=== PATIENT | female | born 1990 | race Caucasian/White ===

== ENCOUNTER 2019-08-19 15:20 | Inpatient (IN) | payer OTHER ==
[~2019-08-19] VITALS: Ht 160 cm; Wt 87.1 kg
[2019-08-19] MEDS ORDERED: LACTATED RINGERS 1,000 ML IV SCH (15:26)
[2019-08-19] MEDS ORDERED: CARBOPROST 250 MCG/ML AMP IM PRN (15:30)
[2019-08-19] MEDS ORDERED: OXYTOCIN 10 UNITS/ML VIAL IM SCH (15:30)
[2019-08-19] MEDS ORDERED: METHYLERGONOVINE 0.2 MG/ML AMP IM PRN (15:30)
[2019-08-19] MEDS ORDERED: PROMETHAZINE 25 MG/ML VIAL IVP PRN (15:30)
[2019-08-19 16:13] LABS: BASOPHILS % (AUTO) 0.5 % (0.0-2.0); EOSINOPHILS # (AUTO) 0.1 K/uL (0-0.4); EOSINOPHILS % (AUTO) 0.6 % (0.0-4.0); HEMATOCRIT 37.1 % (36-48); HEMOGLOBIN 12.8 g/dL (12.0-16.0); LYMPHOCYTES # (AUTO) 1.8 K/uL (2.5-16.5); LYMPHOCYTES % (AUTO) 19.5 % (20.5-51.1); MEAN CORPUSCULAR HEMOGLOBIN 34 pg (27-31); MEAN CORPUSCULAR HGB CONC 35 g/dL (33-37); MEAN CORPUSCULAR VOLUME 97.6 fL (80-94); MONOCYTES # (AUTO) 0.9 K/uL (0.8-1.0); MONOCYTES % (AUTO) 9.4 % (1.7-9.3); NEUTROPHILS # (AUTO) 6.6 K/uL (1.8-7.7); PLATELET COUNT (AUTO) 185 K/uL (140-450); RED CELL DISTRIBUTION WIDTH 13.4 % (11.6-13.7); WHITE BLOOD COUNT (AUTO) 9.4 K/uL (4.8-10.8)
[2019-08-19 16:36] LABS: BARBITURATE, URINE NEGATIVE ng/ml (NEG <=200); BENZODIAZEPINE, URINE NEGATIVE ng/mL (NEG <=200); CANNABINOID, URINE NEGATIVE ng/mL (NEG <=50); COCAINE, URINE NEGATIVE ng/mL (NEG <=300); OPIATE, URINE NEGATIVE ng/mL (NEG <=2000); PHENCYCLIDINE SCREEN,URINE NEGATIVE ng/mL (NEG <=25)
[2019-08-19 16:45] LABS: APPEARANCE,URINE CLEAR (CLEAR); BILIRUBIN,URINE NEGATIVE (NEGATIVE); BLOOD, URINE NEGATIVE (NEGATIVE); COLOR,URINE YELLOW (YELLOW); LEUKOCYTE ESTERASE ,URINE NEGATIVE (NEGATIVE); NITRITE, URINE NEGATIVE (NEGATIVE); UGLUCOSE NEGATIVE (NEGATIVE)
[2019-08-19 18:05] LABS: ALBUMIN 2.8 g/dL (3.4-5.0); ANION GAP 19.3 (8-16); CARBON DIOXIDE 19.3 mmol/L (21-32); CREATININE 0.5 mg/dL (0.6-1.3); POTASSIUM 3.6 mmol/L (3.5-5.1); TOTAL BILIRUBIN 0.5 mg/dL (0.0-1.0)
[2019-08-19] MEDS: MISOPROSTOL 25 MCG TAB VG PRN ×2 (18:13→18:25)
[2019-08-19 18:29] LABS: RAPID PLASMA REAGIN NON-REACTIVE (Non Reactiv)
[2019-08-20] MEDS ORDERED: OXYTOCIN 20 UNITS in LACTATED RINGERS 1,000 ML IV SCH ×2 (00:20→14:03)
[2019-08-20] MEDS ORDERED: OXYTOCIN 20 UNITS/LR PREMIX 1,000 ML IV ONE (02:18)
[2019-08-20] MEDS ORDERED: ROPIVACAINE 0.2%/NS PREMIX 200 ML EPI ONE (08:04)
[2019-08-20] MEDS ORDERED: ROPIVACAINE 0.2%/NS PREMIX 200 ML EPI SCH (08:30)
[2019-08-20] MEDS ORDERED: LIDOCAINE MPF 2% 100 MG/5 ML VIAL INJ ONE (10:38)
[2019-08-20] MEDS ORDERED: LIDOCAINE 1% 500 MG/50 ML VIAL ONE (10:40)
[2019-08-20] MEDS ORDERED: BISACODYL 5 MG TABEC PO PRN (14:05)
[2019-08-20] MEDS ORDERED: MEASLES, MUMPS, AND RUBELLA 1 VIAL SQVAC PRN (14:05)
[2019-08-20] MEDS ORDERED: ACETAMINOPHEN 325 MG TAB PO PRN (14:05)
[2019-08-20] MEDS: IBUPROFEN 600 MG TAB PO PRN (16:48)
[2019-08-21 08:11] LABS: BASOPHILS % (AUTO) 0.4 % (0.0-2.0); EOSINOPHILS # (AUTO) 0.2 K/uL (0-0.4); EOSINOPHILS % (AUTO) 1.2 % (0.0-4.0); HEMATOCRIT 35.5 % (36-48); HEMOGLOBIN 12.1 g/dL (12.0-16.0); LYMPHOCYTES # (AUTO) 1.9 K/uL (2.5-16.5); LYMPHOCYTES % (AUTO) 14.6 % (20.5-51.1); MEAN CORPUSCULAR HEMOGLOBIN 34 pg (27-31); MEAN CORPUSCULAR HGB CONC 34 g/dL (33-37); MEAN CORPUSCULAR VOLUME 98.8 fL (80-94); MONOCYTES # (AUTO) 1.4 K/uL (0.8-1.0); MONOCYTES % (AUTO) 10.4 % (1.7-9.3); NEUTROPHILS # (AUTO) 9.7 K/uL (1.8-7.7); NEUTROPHILS % (AUTO) 73.4 % (42.2-75.2); PLATELET COUNT (AUTO) 176 K/uL (140-450); RED BLOOD CELL COUNT(AUTO) 3.59 MIL/uL (4.20-5.40); RED CELL DISTRIBUTION WIDTH 13.6 % (11.6-13.7); WHITE BLOOD COUNT (AUTO) 13.3 K/uL (4.8-10.8)
--- NOTE | 2019-08-21 09:36 | NUR ---
PATIENT HAS BEEN SCREENED AND CATEGORIZED LOW NUTRITION RISK. PATIENT WILL BE SEEN WITHIN 7 DAYS OF ADMISSION. 08/26/[address]
[2019-08-21] MEDS: DOCUSATE SODIUM 100 MG GELCAP PO PRN (12:34)
[2019-08-21] MEDS: IBUPROFEN 600 MG TAB PO PRN (12:34)
[2019-08-22] MEDS: DOCUSATE SODIUM 100 MG GELCAP PO PRN (08:22)
[2019-08-22] MEDS: IBUPROFEN 600 MG TAB PO PRN (08:22)
== END 2019-08-22 14:25 | disposition home or self-care (01) | DRG 560 ==
LOC: MLD 15:20 → MFCC 08-20 16:00
PROVIDERS: ADMIT Obstetrics & Gynecology; ATTEND Obstetrics & Gynecology
PROC: 10E0XZZ Delivery of Products of Conception, External Approach (ICD-10-PCS; principal; 2019-08-20)
PROC: 00HU33Z Insertion of Infusion Device into Spinal Canal, Percutaneous Approach (ICD-10-PCS; 2019-08-20)
PROC: 3E0R3BZ Introduction of Anesthetic Agent into Spinal Canal, Percutaneous Approach (ICD-10-PCS; 2019-08-20)
DX: O80 Encounter for full-term uncomplicated delivery (principal); Z37.0 Single live birth; Z3A.39 39 weeks gestation of pregnancy
CPT/HCPCS: 36415; 59409; 76815; 80053; 80305; 81003; 85025; 86592; 86886; 86900; 86901; J2001; J2590; J2795; J7120; Q0092